=== PATIENT | male | born 1945 | race Caucasian/White ===

== ENCOUNTER 2017-03-20 10:07 | Outpatient (CLI) | payer OTHER ==
[~2017-03-20 10:07] MED LIST: Gadobenate Dimeglumine 529 MG/1 ML (20ML VIAL) ONE
--- NOTE | 2017-03-20 13:56 | MRI ---
MRI OF THE PELVIS WITH AND WITHOUT IV CONTRAST: INDICATION: Elevated PSA, diagnosis code R97.20. TECHNIQUE: Multiplanar, multisequence MR images were obtained of the pelvis utilizing prostate cancer protocol. 20 cc of MultiHance was utilized for the examination. No comparisons are available. FINDINGS: The prostate measures 6.9 x 4.7 x 6.5 cm in its greatest mediolateral, AP, and craniocaudad dimension s. The total prostatic volume is 109.6 cc. On the diffusion weighted images, no area of suspicious restricted diffusion is seen within the perip heral zone. On the thin section high-resolution T2 weighted images, no suspicious lesion is evident within the central zone of the gland nor within the region of the fibromuscular stroma. No abnormal signal intensity or enhancement is seen within the region of the neurovascular bundle. The dynamic contrast-enhanced images demonstrate no abnormal region of enhancement. No pathologically enlarged lymph nodes are grossly evident. Visualized bone marrow signal intensity appears within normal limits. IMPRESSION: PIRADS category 1 - very low (clinically significant cancer is highly unlikely to be present). POS: MIKE
== END 2017-03-20 10:08 | disposition home or self-care (01) ==
LOC: TBSIIMAG 10:07
DX: R97.20 Elevated prostate specific antigen [PSA] (principal)
CPT/HCPCS: 72197; A9579